=== PATIENT | male | born 2000 | race African-American/Black ===

== ENCOUNTER 2022-04-19 03:33 | Emergency (ER) | payer BC ==
[~2022-04-19] VITALS: Ht 195.6 cm; Wt 83.9 kg
[2022-04-19] MEDS ORDERED: IBUPROFEN 600 MG TABLET PO ONE (05:00)
[2022-04-19] MEDS ORDERED: ACETAMINOPHEN ES 500 MG TABLET ONE (05:00)
[2022-04-19] MEDS ORDERED: TDAP [DIPH/PERTUSSIS/TET] 0.5 ML VIAL IM ONE ×2 (05:00)
[2022-04-19] MEDS ORDERED: IBUPROFEN 600 MG TABLET ONE (05:00)
[2022-04-19] MEDS ORDERED: ACETAMINOPHEN ES 500 MG TABLET PO ONE (05:00)
--- NOTE | 2022-04-19 05:09 | NUR ---
PATIENT TAKEN TO CT
--- NOTE | 2022-04-19 08:08 | NUR ---
OPEN PT IN BED EYES OPEN SPONTANIOUSLY, ANSWERS QUESTIONS APPROPRIATLY REMEMBERS ACCIDENT. FACIAL ECCHYMOSIS AND SWELLING ON THE L EYE SWELLING ON RIGHT ARM. IS NOT CURRENTLY REPORTING PAIN PENDING IMAGING RESULTS.
--- NOTE | 2022-04-19 08:24 | NUR ---
SPOKE W/ RADIOLOGY AND FOLLOWED UP RESULT OF XRAY AND CT SCAN
[2022-04-19] MEDS ORDERED: CEPH500C2 PO (08:58)
[2022-04-19 09:51] VITALS: BP 123/85
== END 2022-04-19 09:52 | disposition home or self-care (01) ==
LOC: ER 03:37
DX: S02.2XXA Fracture of nasal bones, initial encounter for closed fracture (principal); S70.211A Abrasion, right hip, initial encounter; S80.212A Abrasion, left knee, initial encounter; S00.531A Contusion of lip, initial encounter; Y92.414 Local residential or business street as the place of occurrence of the external cause; V03.10XA Pedestrian on foot injured in collision with car, pick-up truck or van in traffic accident, initial encounter; Y93.01 Activity, walking, marching and hiking; G89.29 Other chronic pain; M54.9 Dorsalgia, unspecified; Z98.1 Arthrodesis status
CPT/HCPCS: 36415; 70450-TC; 70486-TC; 72125-TC; 72131-TC; 72170-TC; 90715; G0480